=== PATIENT | male | born 1965 | race Caucasian/White ===

== ENCOUNTER 2019-03-27 23:38 | Emergency (ER) | payer OTHER ==
[2019-03-27 23:54] VITALS: TEMP 97.5; BMI 43.3
[2019-03-28] MEDS ORDERED: guaiFENesin/CODEINE 10 ML UNIT-DOSE CUPS PO ONE (00:11)
--- NOTE | 2019-03-28 00:15 | PDOC ---
History of Present Illness - General History Source: Patient Exam Limitations: No Limitations - History of Present Illness Initial Comments: 03/28/19 00:12 HISTORY OF PRESENT ILLNESS: 53-year-old male history of renal cell carcinoma status post right nephrectomy (treated at [facility] in remission x2 years) who presents emergency department for evaluation of moist productive cough, body aches, clogged ears with posttussive headache and posttussive vomiting over the past 3 days. Patient reports having intermittent chills but has not checked his temperature at home. Patient has been taking [id number] Sudafed and Claritin minimal relief of his congestion. He denies any chest pain, abdominal pain sore throat. No recent travel or sick contacts. PAST MEDICAL HISTORY: See HPI SURGICAL HISTORY: See HPI ALLERGIES: No known drug allergies REVIEW OF SYSTEMS General/Constitutional: +fever. Denies weakness, weight change. HEENT: Denies change in vision. Denies ear pain or discharge. Cardiovascular: Denies chest pain or shortness of breath. Respiratory: Moist productive cough. Denies wheezing, or hemoptysis. Gastrointestinal: Denies nausea, vomiting, diarrhea or constipation. Denies rectal bleeding. Genitourinary: Denies dysuria, frequency, or change in urination. Musculoskeletal: +myalgias. Denies neck or back pain. Skin and breasts: Denies rash or easy bruising. Neurologic: Denies headache, vertigo, loss of consciousness, or loss of sensation. Psychiatric: Denies depression or anxiety. Endocrine: Denies increased thirst. Denies abnormal weight change. Hematologic/Lymphatic: Denies anemia, easy bleeding, or history of blood clots. Allergic/Immunologic: Denies hives or skin allergy. Denies latex allergy. PHYSICAL EXAM General Appearance: Well-appearing, appropriately dressed. No apparent distress , no intoxication. HEENT: EOMI, PERRLA, normal voice, TMs retracted bilaterally. No conjunctival pallor. No photophobia, scleral icterus. Oropharynx erythematous without lesions or exudate. Cobblestoning noted in the posterior. No nasal discharge present. Neck: Supple. Trachea midline. No tenderness, rigidity, carotid bruit, stridor , or thyromegaly. Nontender anterior cervical lymphadenopathy present. Respiratory/Chest: Lungs CTAB. No shortness of breath, chest tenderness, respiratory distress, accessory muscle use. No crackles, rales, rhonchi, stridor , wheezing, dullness Cardiovascular: RRR. S1, S2. No JVD, murmur, bradycardia, tachycardia. Vascular Pulses: Dorsalis-Pedis (R): 2+, Dorsalis-Pedis (L): 2+ Gastrointestinal/Abdominal: Normal bowel sounds. Abdomen soft, non-distended. No tenderness or rebound tenderness. No organomegaly, pulsatile mass, guarding, hernia, hepatomegaly, splenomegaly. Musculoskeletal/Extremities: Normal inspection. FROM of all extremities, normal capillary refill. Pelvis Stable. No CVA tenderness. No tenderness to extremities, pedal edema, swelling, erythema or deformity. Integumentary: Appropriate color, dry, warm. No cyanosis, erythema, jaundice or rash Neurologic: tin container straightener II-XII intact. Fully oriented, alert. Appropriate mood/affect. Motor strength 5/5. No appreciable EOM palsy, facial droop or sensory deficit. 03/28/19 00:15 <Jamar Ingram - Last Filed: 03/28/19 01:12> <Em Coreas - Last Filed: 03/28/19 01:57> - General Chief Complaint: Cold Symptoms Stated Complaint: COUGH Time Seen by Provider: 03/28/19 00:02 Past History - Psycho Social/Smoking Cessation Hx Smoking History: Never smoked Hx Alcohol Use: No Drug/Substance Use Hx: No <Jamar Ingram - Last Filed: 03/28/19 01:12> <Em Coreas - Last Filed: 03/28/19 01:57> - Past Medical History Allergies/Adverse Reactions: Allergies Allergy/AdvReac Type Severity Reaction Status Date / Time No Known Allergies Allergy Verified 03/27/19 23:54 *Physical Exam - Vital Signs Last Vital Signs Temp Pulse Resp BP Pulse Ox 97.5 F L 105 H 19 150/92 97 03/27/19 23:40 03/27/19 23:40 03/27/19 23:40 03/27/19 23:40 03/27/19 23:40 <Jamar Ingram - Last Filed: 03/28/19 01:12> - Vital Signs Last Vital Signs Temp Pulse Resp BP Pulse Ox 97.5 F L 105 H 19 150/92 97 03/27/19 23:40 03/27/19 23:40 03/27/19 23:40 03/27/19 23:40 03/27/19 23:40 <Em Coreas - Last Filed: 03/28/19 01:57> ED Treatment Course - RADIOLOGY Radiology Studies Ordered: Category Date Time Status CHEST PA & LAT [RAD] Stat Radiology 03/28/19 00:10 Ordered <Jamar Ingram - Last Filed: 03/28/19 01:12> Medical Decision Making - Medical Decision Making 03/28/19 00:14 A/P: 53-year-old male with 3 days of flulike symptoms Physical exam reveals high likelihood of influenza. However patient does not have a fever. Chest x-ray to rule out pneumonia Guaifenesin 10 cc orally now Likely discharge 03/28/19 01:12 Chest x-ray as read by me: Angles clear. Cardiac silhouette is within normal limits. No focal infiltrates or consolidations are present. Discharge home with symptomatic treatment of upper respiratory infection. I discussed the physical exam findings, ancillary test results and final diagnoses with the patient. I answered all of the patient's questions. The patient was satisfied with the care received and felt comfortable with the discharge plan and treatment plan. The patient will call their primary care physician within 24 hours to arrange follow-up and will return to the Emergency Department with any new, persistent or worsening symptoms. <Jamar Ingram - Last Filed: 03/28/19 01:12> - Medical Decision Making Vital Signs Temp Pulse Resp BP Pulse Ox 97.5 F L 105 H 19 150/92 97 03/27/19 23:40 03/27/19 23:40 03/27/19 23:40 03/27/19 23:40 03/27/19 23:40 The patient was seen and evaluated in conjunction with midlevel provider under my direct supervision, ancillary studies were reviewed. I agree with the plan as outlined with [employer] Juan Jose. HPI, workup/dispo as outlined. VS reviewed, mild tachy. no fever, normal sats. BP mildly elevated. cxr appears clear, no e/o pna or ptx. anticipate discharge, pcp followup, return precautions 03/28/19 00:21 03/28/19 00:22 03/28/19 01:57 <mE Coreas - Last Filed: 03/28/19 01:57> Discharge - Discharge Information Problems reviewed: Yes - Admission No <Jamar Ingram - Last Filed: 03/28/19 01:12> <Em Coreas - Last Filed: 03/28/19 01:57> - Discharge Information Clinical Impression/Diagnosis: Influenza-like illness Condition: Good Disposition: HOME - Follow up/Referral Referrals: Merly Hurt MD [Primary Care Provider] - - Patient Discharge Instructions Patient Printed Discharge Instructions: DI for Viral Upper Respiratory Infection -- Adult Additional Instructions: Rest, drink lots of fluids: Teas, water, soups, Pedialyte Saltwater gargles Steamy showers/seem to face break up mucus Avoid contact with others until fevers and cough resolved Lots of handwashing and good hygiene Continue [id number] medications for symptomatic relief Tylenol or Motrin for fever and pain Followup with private physician in one to 2 days as needed Return to emergency department for worsened symptoms, fevers, dehydration - Post Discharge Activity
[2019-03-28] MEDS ORDERED: guaiFENesin/CODEINE 5 ML UNIT-DOSE CUPS PO ONE (00:30)
[2019-03-28 01:20] VITALS: BP 155/89; PULSE 94
== END 2019-03-28 01:15 | disposition home or self-care (01) ==
LOC: JER 23:38
DX: J11.1 Influenza due to unidentified influenza virus with other respiratory manifestations (principal)
CPT/HCPCS: 71046-TC-FY; 99282-25